=== PATIENT | male | born 1985 | race Caucasian/White ===

== ENCOUNTER 2019-11-15 06:58 | Day surgery (SDC) | payer OTHER ==
[~2019-11-15 06:58] MED LIST: CEFAZOLIN 2 GM/D5W RTU 2 GM/50 ML RTUPB IV PRN; FENTANYL CITRATE INJ/PF 100 MCG/2 ML AMPUL ONE; LACTATED RINGERS 1000 ML IV PRN; LIDOCAINE 0.5% INJ-PF (5 MG/ML) 50 ML SDV SUBCUT PRN; MIDAZOLAM 2 MG/2 ML INJ ONE; ONDANSETRON HCL INJ/PF 4 MG/2 ML SDV ONE; PROPOFOL INJ 200 MG/20 ML VIAL IV ONE
[2019-11-15] MEDS ORDERED: CEFAZOLIN 2 GM/D5W RTU 2 GM/50 ML RTUPB IV ONE (07:15)
[2019-11-15] MEDS ORDERED: LIDOCAINE 1%/EPINEPHRINE INJ 20 ML VIAL ONE (08:21)
[2019-11-15] MEDS ORDERED: BUPIVACAINE HCL 0.25 % INJ/PF (2.5 MG/1 ML) 30 ML VIAL ONE (08:22)
[2019-11-15] MEDS ORDERED: LIDOCAINE 1% INJ-PF (10 MG/ML) 30 ML SDV ONE (08:22)
[2019-11-15] MEDS ORDERED: DIPHENHYDRAMINE HCL 50 MG/ML VIAL IV PRN (09:31)
[2019-11-15] MEDS ORDERED: MORPHINE SULFATE 10 MG/ML INJ IV PRN (09:31)
[2019-11-15] MEDS ORDERED: PROMETHAZINE HCL INJ 25 MG/1 ML VIAL IV PRN ×3 (09:31→10:48)
[2019-11-15] MEDS ORDERED: FENTANYL CITRATE INJ/PF 100 MCG/2 ML AMPUL IV PRN ×3 (09:31)
[2019-11-15] MEDS ORDERED: ONDANSETRON HCL INJ/PF 4 MG/2 ML SDV IV PRN ×2 (09:31→10:58)
[2019-11-15] MEDS ORDERED: MEPERIDINE HCL/PF INJ 25 MG/1 ML DISP.SYRIN IV PRN (09:31)
[2019-11-15] MEDS: MORPHINE SULFATE 10 MG/ML INJ ONE ×2 (10:30→10:35)
--- NOTE | 2019-11-15 10:42 | Operative Report ---
Operative Report DATE OF SURGERY: 11/15/19 Operative Report: The patient was seen by me in the preoperative holding area and his operative extremity was marked with an indelible pen. He was taken to the operating room and placed supine on the operating room table where general anesthesia was induced without any apparent complication. His operative extremity was prepped and draped in the normal sterile orthopedic fashion. A well-padded thigh tourniquet was placed. A timeout for safety was taken in which we identify the correct patient, the correct side, the correct procedure and that we had all necessary equipment. It was verified that the patient received 2 g of preoperative Ancef. The limb was exsanguinated with a Esmarch bandage and the tourniquet was inflated to 250 mmHg. The portal sites were infiltrated with 2 cc of 1% lidocaine and half percent Marcaine mixture. I then made a standard anterolateral portal with an 11 blade. The patient had a previous arthroscopy however I found that his previous arthroscopy portals were suboptimal for my purposes today. I therefore made a new portal laterally and entered the joint to begin a diagnostic arthroscopy. I then made a medial portal under direct visualization utilizing a spinal needle. Diagnostic arthroscopy aided with the probe medially noted mild chondromalacia of the patella no significant chondromalacia of the trochlea, mild synovitis in the suprapatellar pouch, no loose bodies medially or laterally, the medial compartment was largely normal. There was no meniscus tear identified, no meniscal instability, no significant chondral defects. There was some softening of the articular cartilage as noted on his arthroscopy pictures. In the notch the ACL and PCL appeared normal there was no tear identified. The lateral compartment demonstrated more pronounced chondromalacia with areas of near full-thickness fissuring as well as other areas of grade I-II chondromalacia. There were no unstable cartilage flaps noted and no large areas of full-thickness defects. The lateral meniscus appeared to have been already partially resected during the patient's previous surgery. The anterior horn was largely absent. There was a complex tear of the mid body that extended posteriorly and was not amenable to repair. This tear was debrided with a combination of the Arthrex meniscal basket as well as a sucker shaver. The meniscus was debrided back to a stable edge, it was probed for stability and found to be stable. I preserved as much meniscus as possible while debriding the symptomatic tear. The joint was lavaged and the sucker shaver was utilized to remove meniscal fragments. This concluded the case all instruments were removed from the joint and the portals were closed utilizing interrupted 3-0 nylon stitches. The joint was injected with approximately 15 cc of 1% lidocaine and quarter percent Marcaine for postoperative pain control. Patient was extubated without any apparent complication and transferred to the PACU in good condition where he will remain until he meets the criteria for discharge. 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 OPERATION: Right knee partial lateral meniscectomy SURGEON: JOSUÉ AUSTIN ANESTHESIA: GA TISSUE REMOVED OR ALTERED: Partial lateral meniscectomy COMPLICATIONS: None ESTIMATED BLOOD LOSS: 2 cc INTRAOPERATIVE FINDINGS: See operative note PROCEDURE: Right knee arthroscopy partial lateral meniscectomy
[2019-11-15] MEDS ORDERED: OXYCODONE-ACETAMINOPHEN 5-325 MG TABLET PO PRN ×2 (10:46→10:59)
[2019-11-15] MEDS ORDERED: IBUPROFEN 800 MG TABLET PO PRN (10:46)
[2019-11-15] MEDS ORDERED: RINGERS SOLUTION,LACTATED 1,000 ML IV PRN (10:46)
[2019-11-15] MEDS ORDERED: DIPHENHYDRAMINE HCL 25 MG CAPSULE PO PRN (10:47)
--- NOTE | 2019-11-15 10:48 | Discharge Summary ---
Discharge Summary (SDC) - Discharge Final Diagnosis: Right knee lateral meniscus tear Date of Surgery: 11/15/19 Discharge Date: 11/15/19 Treatment or Instructions: Leave dressing on for 3 days then can remove dressing and shower. Let warm soa py water wash over incisions, pat dry with a clean towel. Do not submerge incisions for 6 weeks. Patient may walk as tolerated. Utilize crutches for first 24 hours then stop using them. Follow-up as scheduled at the [facility] orthopedic clinic, please call for details. Call medications as written, prescriptions are at the [facility] pharmacy. Oxycodone 5 mg 1 to 2 tablets every 4-6 hours as needed for pain, please take with Tylenol. Tylenol 325 mg, take 2 tablets every 4-6 hours as needed for pain, do not exceed more than 3000 mg of Tylenol in 1 day. Colace 100 mg as needed for constipation. Zofran 4 mg as needed every 8 hours for nausea. Aspirin 325 mg, take 1 tablet every 12 hours for 30 days for DVT prophylaxis. Discharge Diet: As Tolerated, Regular Respiratory Treatments at Home: Incentive Spirometer Discharge Activity: Activity As Tolerated, Walk Frequently Home Care Assistance: None Needed Adaptive Devices on Discharge: Axillary Crutches Report the Following to Your Physician Immediately: Shortness of Breath, Increase in Pain, Swelling, Warmth, Drainage-Foul Smelling
[2019-11-15] MEDS ORDERED: OXYCODONE-ACETAMINOPHEN 5-325 MG TABLET ONE (11:07)
[2019-11-15] MEDS ORDERED: KETOROLAC TROMETHAMINE INJ/PF 30 MG/1 ML SDV IV PRN (11:15)
[2019-11-15 13:29] VITALS: BP 135/89
== END 2019-11-15 12:10 | disposition home or self-care (01) ==
LOC: OROUT 06:58
PROVIDERS: ATTEND Orthopaedic Surgery
DX: S83.271D Complex tear of lateral meniscus, current injury, right knee, subsequent encounter (principal); X58.XXXD Exposure to other specified factors, subsequent encounter; G89.29 Other chronic pain; M54.9 Dorsalgia, unspecified; M25.551 Pain in right hip; Z03.818 Encounter for observation for suspected exposure to other biological agents ruled out
CPT/HCPCS: 87635; 01400; 29881; J2250; J3010; J3490; J2270; J2405; J2704; J0690; C9803; 1400